=== PATIENT | male | born 1980 | race Caucasian/White ===

== ENCOUNTER → 2017-10-03 | Emergency (ER) | payer OTHER ==
[~2017-10-03] MED LIST: COZAAR25 MG
== END | disposition left against medical advice (07) ==
LOC: ER 18:23
DX: Z53.20 Procedure and treatment not carried out because of patient's decision for unspecified reasons (principal)

== ENCOUNTER 2018-04-16 14:27 | Outpatient (CLI) | payer OTHER | END 2018-04-16 14:32 | disposition home or self-care (01) | LOC: RAD 14:27 | DX: M79.671 Pain in right foot (principal) ==

== ENCOUNTER 2019-01-27 17:43 | Outpatient (CLI) | payer OTHER | END 2019-01-27 19:11 | disposition home or self-care (01) | LOC: RAD 17:43 | DX: M25.571 Pain in right ankle and joints of right foot (principal); M79.672 Pain in left foot; M79.671 Pain in right foot; M10.9 Gout, unspecified; M06.4 Inflammatory polyarthropathy; I10 Essential (primary) hypertension; E78.2 Mixed hyperlipidemia; Z13.1 Encounter for screening for diabetes mellitus; Z13.220 Encounter for screening for lipoid disorders; Z13.29 Encounter for screening for other suspected endocrine disorder; G47.33 Obstructive sleep apnea (adult) (pediatric) ==